=== PATIENT | male | born 1980 | race Caucasian/White ===

== ENCOUNTER 2025-01-02 01:26 | Emergency (ER) | payer MEDICAID ==
[~2025-01-02] VITALS: Ht 180.3 cm; Wt 75.0 kg
[2025-01-02 01:41] VITALS: PULSE 83; RESP 18; TEMP 98.3; O2SAT 99
--- NOTE | 2025-01-02 02:12 | Physician Documentation ---
History of Present Illness ~ Chief Complaint: Medical Clearance Stated Complaint: MEDICAL CLEARANCE Time Seen by MD: 02:11 HPI 44-year-old male presenting for medical clearance in police custody, because of reported high blood pressure Per police, the blood pressure was in the 200s systolic. No other acute concerns. Here in the ED, the patient denies any history of high blood pressure, does not take any blood pressure medicine. He denies any chest pain, shortness of breath, leg swelling, or other heart related symptoms. Tetanus within 5 years?: No Medication Reconciliation Allergies: Coded Allergies: No Known Allergies (Unverified , 01/02/25) Review of Systems All Other Systems at this time: Reviewed and Negative Physical Exam Vital Signs: Temperature: 98.3, Heart Rate: 83, Respiratory Rate: 18, BP: 147/97, Pulse Oximetry: 99, Weight: 75.000 Physical Exam General: This is a overall healthy-appearing middle-aged man, in handcuffs, police at bedside HEENT: Atraumatic, oropharynx is moist Heart: Regular rate and rhythm, normal-appearing peripheral perfusion Lungs: normal work of breathing, normal oxygen saturation on room air Neuro: Alert and oriented Psychiatric: Slurred speech, appears possibly intoxicated, but is cooperative Progress Results/Orders Results/Orders Vital Signs 01/02/25 01/02/25 01:41 02:21 Temp 98.3 Pulse 83 Resp 18 B/P (MAP) 147/97 166/109 (128) Pulse Ox 99 Medical Decision Making Additional information obtaine: other Findings Further information obtained from police Differential Dx:Considerations: Include: Intoxication-Alcohol, Intoxication- Other drug, Medically stable Differential Diagnosis The patient presents for medical clearance because he has high blood pressure at the shelter. Here in the ED, his blood pressure is not dangerously elevated. He is otherwise asymptomatic, no chest pain or other heart related symptoms. Repeat blood pressure again is not dangerously elevated. Overall, this seems likely a combination of stress and possible substance use as well as positioning as his arms or in handcuffs. He does not appear to have an acute medical or surgical emergency. He will be discharged in police custody. Return precautions were given and they were given instructions about follow-up for repeat blood pressure testing and management Departure Time of Disposition: :17 Disposition: 01 HOME / SELF CARE / HOMELESS Impression: Primary Impression: General medical exam Condition: Improved Discharge Instructions: Medical Screening Exam Referrals: NO PRIMARY CARE PROVIDER (PCP) Education Educated: Patient Educated regarding: diagnosis, need for follow up Signature Scribe Signature: na Attestation: BLAIR Crane MD Jan 02, 2025 02:12
[2025-01-02 02:21] VITALS: BP 166/109
== END 2025-01-02 02:28 ==
LOC: ER 01:27
DX: Z00.00 Encounter for general adult medical examination without abnormal findings (principal)
CPT/HCPCS: 99283